=== PATIENT | female | born 1950 | race African-American/Black ===

== ENCOUNTER 2016-11-14 07:48 | Day surgery (SDC) | payer OTHER ==
[2016-11-13 12:53] LABS: BASOPHILS 0.1 %; BASOPHILS ABSOLUTE 0.01 10/3/uL (0.0-0.16); EOSINOPHILS 0.4 %; EOSINOPHILS ABSOLUTE 0.04 10/3/uL (0.0-0.53); HEMOGLOBIN 11.2 g/dL (12.0-16.0); IMMATURE GRANULOCYTES 0.6 %; IMMATURE GRANULOCYTES ABSOLUTE 0.06 10/3/uL (0.0-0.11); LYMPHOCYTES 21.7 %; LYMPHOCYTES ABSOLUTE 2.35 10/3/uL (0.67-4.30); MEAN CORPUS HGB CONC 33.3 g/dL (32.0-36.0); MEAN CORPUSCULAR HEMOGLOB 29.7 pg (26.0-34.0); MONOCYTES 10.2 %; NEUTROPHILS ABSOLUTE 7.25 10/3/uL (2.02-8.40); PLATELET COUNT 267 10/3/uL (150-400); RBC DISTRIBUTION WIDTH 15.2 % (12.0-16.0); RED CELL COUNT 3.77 10/6/uL (4.0-5.6)
[2016-11-13 12:54] LABS: HEMATOCRIT 33.6 % (36.0-48.0); MANUAL DIFF NO %; MEAN CORPUSCULAR VOLUME 89.1 fL (80-100); WHITE BLOOD CELLS 10.8 10/3/uL (4.5-10.5)
[2016-11-13 13:01] LABS: INTERNATIONAL NORMAL RATI 1.1 UNITS (-); PARTIAL THROMBO TIME 25.8 SEC (22.5-37.2); PROTIME (NOT ORD) 13.8 SEC (12.0-14.5)
[2016-11-13 13:12] LABS: BUN (BLOOD UREA NITROGEN) 31 MG/DL (6-23); CHLORIDE, SERUM 109 MMOL/L (96-112); CO2 (CARBON DIOXIDE) 21 MMOL/L (24-34); CREATININE 0.99 MG/DL (0.55-1.02); GFR AFRICAN AMERICAN 69 ML/MIN (>=60); GFR NON AFRICAN AMERICAN 59 ML/MIN (>=60); GLUCOSE, SERUM 330 MG/DL (60-99); POTASSIUM, SERUM 4.3 MMOL/L (3.5-5.3); SODIUM, SERUM 139 MMOL/L (135-148)
--- NOTE | ~2016-11-14 | OP ---
Record Of Operation [facility] [address] [place]. 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 PROCEDURE: Excisional debridement and coccygectomy with cultures and sensitivities obtained and debridement of soft tissue excisionally in addition to the coccyx with placement of a wound VAC in the defect. MUD ANALYSIS SUPERVISOR: Queta Jaime RN FORENSIC BALLISTICS EXPERT. 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 POSTOPERATIVE CONDITION: A clean viable bed with coccyx removed with good hemostatic control. The measurement was 4.2 x 3.8 x 3.9 cm measured. INSTRUMENTS USED: The instruments used for the debridement was cautery on coag and cutting currents with the use of Lopez scissors and sharp dissection. DESCRIPTION OF PROCEDURE: A time-out was called and agreement on all personnel's part for the procedure and expectations. The patient was given Ancef 1 g, meropenem 1 g, and vancomycin 1 g per previous culture, which was done 09/22/2016 showing a Proteus mirabilis and E coli that was ESBL and Enterococcus faecalis group D. This is the most recent culture available, but culture was repeated today as stated. The patient was prepped and draped in routine fashion after removal of the previously placed VAC. The area was inspected and the area of the coccyx was identified. Soft tissue around the coccyx was removed with cautery current and Lopez scissors. The coccyx which was very mobile and necrotic was grasped with a towel clip and gently removed from the bed staying on the bony tissue itself. Cultures were obtained from the area of the bed of the coccyx as well as the more purulent area surrounding it. This was submitted for anaerobic, aerobic, fungus, and AFB evaluation. The areas were then reinspected and hemostasis achieved with cautery. The pulse lavage was then used to help clean up the area with copious amounts of normal saline, which was suctioned as it was accumulated. The area was inspected and hemostasis achieved with cautery current and Surgicel placed strategically around in the area of the bed to assist with any oozing. The wound VAC was then reapplied using the green sponge that came with the [employer] VAC system, which is the system mandated by the patient's insurance. The VAC was placed to 125 mmHg continuous VAC to be changed every three to four days by home health care. The patient was to be followed up in the wound healing clinic in about two weeks and Record Of [address] [id number] NAME: SAIMA JOHNS : 50 STATUS : REG [facility] PAT#: [id number] AGE: 66 ADM/REG DATE : 11/14/16 MR#: [id number] REPORT SERV DATE: 11/14/16 DICTATED BY: GAURAV JAIME III DATE: 11/14/16 REPORT STATUS : Draft TRANSCRIBED BY: TELMA DATE: 11/14/16 to continue therapy as outlined below. Cultures are pending, but no antibiotics will be assigned to the patient till we have cultures back. The patient's family was appraised of the situation and they are to continue with nutritional support including Anuj nutritional supplement as well as maintaining her diabetes mellitus control as previously outlined in her records. Also to continue using an offloading low air loss mattress and to log roll for at least every two hours. The patient tolerated the procedure well, although her blood pressure was very labile throughout the procedure, being up and down responding to medications per the anesthesia staff in attendance. The estimated blood loss about 10 mL. There were no complications. The patient's prognosis is guarded, but with the osteomyelitis of the coccyx surely there will be a better chance for healing with this bone removed. The sacrum adjacent to the coccyx appeared to be relatively uninvolved and there was no obvious osteomyelitis in this area. Hopefully, we can get granulation tissue over the coccyx with the wound VAC and try to propagate more healing in this fashion. NAMRATA/TELMA Gaurav Jaiem III, M.D. / [id number] CC: Arlin Lopes III, M.D. [facility] [place]
[~2016-11-14 07:48] MED LIST: ALEVE220 MG PO; ASAB PO; AVAP150 PO; BACDS PO; BISR PR; BIST PO; COREG12 PO; DSS PO; GLUCOPHAGE1000 MG PO; LANTUS SC; LANTUSCART SC; LEXAPRO20 PO; MEGACEUDL PO; MIRALAX POWDER1 PKT PO; MULTIPLE VIT PO; NAMENDA10 MG PO; NAMENXR28 PO; NORV5 PO; NOVOLOG SC; NOVOPEN SC; PROTONIX PO; PROTONIX20 MG PO; REBI1 SC; REBIF SC; SANCTURA XR60 MG PO; SENTAB PO; ULTRAM50 PO; VITAMIN D31000 UNIT PO; VYTORIN 10/40 T1 TAB PO
== END 2016-11-14 16:37 | disposition home or self-care (01) ==
LOC: SDC 07:48
PROVIDERS: Surgery
PROC: 0QTS0ZZ Resection of Coccyx, Open Approach (ICD-10-PCS; principal; 2016-11-14 09:45)
DX: E11.69 Type 2 diabetes mellitus with other specified complication (principal); M46.28 Osteomyelitis of vertebra, sacral and sacrococcygeal region; E11.622 Type 2 diabetes mellitus with other skin ulcer; L89.154 Pressure ulcer of sacral region, stage 4; K21.9 Gastro-esophageal reflux disease without esophagitis; F03.90 Unspecified dementia, unspecified severity, without behavioral disturbance, psychotic disturbance, mood disturbance, and anxiety; I10 Essential (primary) hypertension; Z86.73 Personal history of transient ischemic attack (TIA), and cerebral infarction without residual deficits; Z90.710 Acquired absence of both cervix and uterus; Z98.890 Other specified postprocedural states; Z79.82 Long term (current) use of aspirin; Z79.4 Long term (current) use of insulin; Z79.899 Other long term (current) drug therapy
CPT/HCPCS: 80048; 82962; 85025; 85610; 85730; 87015; 87070; 87075; 87077; 87102; 87116; 87186; 87205; 88304; 88311; 93005; J0690; J2185; J2370; J2405; J2710; J3010